=== PATIENT | female | born 1945 | race Caucasian/White ===

== ENCOUNTER 2021-04-14 11:46 | Outpatient (CLI) | payer MEDICARE ==
[~2021-04-14] VITALS: Ht 160 cm; Wt 63.5 kg
[2021-04-15] MEDS ORDERED: LISI20TA26 PO (09:17)
[2021-04-15] MEDS ORDERED: CLON0.5T25 PO (09:17)
[2021-04-15] MEDS ORDERED: CITA20TA12 PO (09:17)
[2021-04-15] MEDS ORDERED: VIT D PO (09:17)
[2021-04-15] MEDS ORDERED: ROSU5TAB13 PO (09:17)
[2021-04-15] MEDS ORDERED: VIT B12 OTC PO (09:17)
[2021-04-15] MEDS ORDERED: [UNRECOGNIZED DRUG - OTHER] PO (09:17)
== END 2021-04-15 09:36 | disposition home or self-care (01) ==
LOC: PREOP 11:46
PROVIDERS: ATTEND Internal Medicine
DX: Z01.818 Encounter for other preprocedural examination (principal)

== ENCOUNTER 2021-04-23 09:33 | Day surgery (SDC) | payer MEDICARE, OTHER ==
--- NOTE | 2021-04-15 07:26 | HISTORY AND PHYSICAL ---
DATE OF SERVICE: COLONOSCOPY HISTORY AND PHYSICAL DATE OF ADMISSION: ____ HISTORY OF PRESENT ILLNESS: The patient of 75-year-old white female being set up for screening colonoscopy. She had one another colonoscopy done over 10 years ago at [place] and she does not recall any problems or polyps. She thinks she may have had some diverticulum. Otherwise, she has been feeling well. She has noted no bright red blood per rectum, melena and has had no bowel habit change or abdominal pain. PAST MEDICAL HISTORY: Significant for hypertension and hyperlipidemia with no known history for vascular disease. PAST SURGICAL HISTORY: Noncontributory. FAMILY HISTORY: Her father of brain cancer at the age of 75. Mother totally gave up after that dying of malnutrition and depression. She is not aware of any family history for GI tract malignancy. PHYSICAL EXAMINATION: GENERAL: Reveals a white female, appears to be in no acute distress. HEENT: Unremarkable. Sclerae nonicteric. VITAL SIGNS: Blood pressure 130/66, weight 142 pounds, and stable. CHEST: Clear to auscultation. CARDIOVASCULAR: Reveals a regular rate and rhythm without murmur, S3 or S4. ABDOMEN: Soft, supple without mass, organomegaly or tenderness. Bowel sounds positive. No bruits noted. EXTREMITIES: Reveal no cyanosis, clubbing or edema. ASSESSMENT AND PLAN: 1. Hypertension, under good control. 2. Hyperlipidemia, has been under good control on statin therapy. 3. The patient is being set up for screening colonoscopy. Did discuss this would be her last if she had no evidence for neoplasia. Prep instructions with the Suprep kit were given and questions were answered. Job ID: [id number] DocumentID: [id number] Dictated Date: 04/07/2021 15:47:23 Music Supervisor Date: 04/07/2021 15:58:22 Dictated By: CAMERON LUCAS MD
[~2021-04-23] VITALS: Ht 160 cm; Wt 63.5 kg
[~2021-04-23 09:33] MED LIST: CITA20TA12 PO; CLON0.5T25 PO; LISI20TA26 PO; ROSU5TAB13 PO; VIT B12 OTC PO; VIT D PO; [UNRECOGNIZED DRUG - OTHER] PO
[2021-04-23] MEDS ORDERED: LACTATED RINGERS 1,000 ML IV ONE ×2 (09:43→10:30)
[2021-04-23 10:07] VITALS: BP 124/57
[2021-04-23] MEDS ORDERED: PROPOFOL INJECTION 50 ML IV ONE (10:20)
[2021-04-23 10:55] VITALS: BP 97/50
--- NOTE | 2021-04-23 10:56 | Anesthesia-General Post-Op ---
MAC Patient Condition Mental Status/LOC: Same as Preop Cardiovascular: Satisfactory Nausea/Vomiting: Absent Respiratory: Satisfactory Pain: Controlled Complications: Absent Post Op Complications Complications None Follow Up Care/Instructions Patient Instructions None needed. Anesthesiology Discharge Order Discharge Order Patient is doing well, no complaints, stable vital signs, no apparent adverse anesthesia problems. No complications reported per nursing. AVELINA VALLADARES CRNA Apr 23, 2021 10:56
[2021-04-23 11:00] VITALS: BP_SYST 98; BP_DIAS 51; BP_DIAS 54
[2021-04-23 11:27] VITALS: BP 122/56
[2021-04-23 11:31] VITALS: BP 122/56
--- NOTE | 2021-04-23 18:09 | OPERATIVE REPORT ---
DATE OF SERVICE: COLONOSCOPY SUMMARY INDICATION FOR THE PROCEDURE: Screening colonoscopy. I am her primary care provider. DESCRIPTION OF PROCEDURE: Prior to undergoing colonoscopy, a digital rectal evaluation was performed. Anal sphincter tone was normal and the perianal reflexes intact. Digital exam was compatible with an anterior rectocele. No other abnormalities were noted. The colonoscope was then inserted into the rectum and under direct visualization advanced to the cecum. The cecum was identified by identification of the cecal strap. Quality of prep was good. FINDINGS: There was no evidence for internal or external hemorrhoids. Present in the distal rectum was a 1.2 x 0.6 cm adenomatous appearing polyp. It was photographed and then excised via hot snare. The base was cauterized with minimal blood loss. The remainder of the rectum was unremarkable. Several small sigmoid diverticulum were present without evidence for diverticulitis. Present in the distal sigmoid colon was a diminutive 3 mm sessile polyp that was biopsied and ablated with no blood loss. The descending colon, splenic flexure, transverse colon, hepatic flexure, ascending colon and cecum were unremarkable. ASSESSMENT: A 1.2 x 0.6 cm adenomatous appearing polyp was removed via snare and the base was also cauterized with the hot forceps noted in the distal rectum. Other diminutive polyp was ablated from the distal sigmoid colon. We will need to await histopathology report before making recommendations for future surveillance colonoscopy. Mild diverticular disease confined to the sigmoid colon was present and digital rectal evaluation was compatible with an anterior rectocele. Job ID: [id number] DocumentID: [id number] Dictated Date: 04/23/2021 11:11:24 Drawing Checker Date: 04/23/2021 18:08:26 Dictated By: CAMERON LUCAS MD
== END 2021-04-23 11:32 | disposition home or self-care (01) ==
LOC: ENDO 09:33
PROVIDERS: ATTEND Internal Medicine
DX: Z12.11 Encounter for screening for malignant neoplasm of colon (principal); D12.8 Benign neoplasm of rectum; K63.5 Polyp of colon; K57.30 Diverticulosis of large intestine without perforation or abscess without bleeding; I10 Essential (primary) hypertension; E78.5 Hyperlipidemia, unspecified; Z79.899 Other long term (current) drug therapy

== ENCOUNTER → 2023-03-06 | Outpatient (CLI) | payer MEDICARE, OTHER ==
--- NOTE | 2023-03-06 13:06 | Diagnostic Imaging Report ---
INDICATION: Back pain for a few weeks. FINDINGS: AP and lateral views of the lumbar spine are obtained. There is straightening of normal lumbar lordosis. There is diffuse disc space narrowing from L2 through L5 with mild associated endplate spurring. There is also sclerosis about the L4-L5 facet joints, greater on the right. No fracture is seen. There is mild sclerosis about the right sacroiliac joint. Surgical material is seen in the central pelvis. IMPRESSION: Diffuse lumbar degenerative disc disease without evidence of acute fracture. There is associated degenerative facet arthropathy, most pronounced on the right at L4-L5 with possible mild right sacroiliitis. Dictated by: Dictated on workstation # [id number]
--- NOTE | 2023-03-06 13:20 | Diagnostic Imaging Report ---
INDICATION: Pelvic pain, fall. FINDINGS: Three-view sacrococcygeal radiographs were performed. No SI joint diastasis. No visible sacral or coccygeal fracture deformity at AP or bilateral oblique views. IMPRESSION: Unremarkable bilateral sacrococcygeal radiographs. No SI joint diastasis or visible ankylosis. Dictated by: Dictated on workstation # [id number]
--- NOTE | 2023-03-06 13:25 | Diagnostic Imaging Report ---
INDICATION: Pain. FINDINGS: Three-view left hand performed. There are severe degenerative changes, greatest at the first CMC where there are some regional soft tissue calcifications. No fracture or dislocation. There is interphalangeal arthritic joint space narrowing. No devon erosion. IMPRESSION: Chronic arthritic sequelae, but no fracture or acute injury radiographically apparent. Dictated by: Dictated on workstation # [id number]
== END ==
LOC: RAD 12:09
PROVIDERS: ATTEND Nurse Practitioner Family
DX: M51.36 Other intervertebral disc degeneration, lumbar region (principal); M47.816 Spondylosis without myelopathy or radiculopathy, lumbar region; M19.042 Primary osteoarthritis, left hand
CPT/HCPCS: 72100; 72202; 73130

== ENCOUNTER 2023-03-07 13:53 | Outpatient (RCR) | payer MEDICARE, OTHER | END 2023-03-12 | disposition home or self-care (01) | PROVIDERS: ATTEND Nurse Practitioner Family | DX: M54.16 Radiculopathy, lumbar region (principal); I10 Essential (primary) hypertension; Z96.651 Presence of right artificial knee joint ==

== ENCOUNTER 2023-04-11 09:12 | Outpatient (RCR) | payer MEDICARE, OTHER | END 2023-04-12 | disposition home or self-care (01) | PROVIDERS: ATTEND Nurse Practitioner Family | DX: M54.16 Radiculopathy, lumbar region (principal); I10 Essential (primary) hypertension; Z96.651 Presence of right artificial knee joint ==

== ENCOUNTER 2023-05-11 10:53 | Outpatient (RCR) | payer MEDICARE, OTHER | END 2023-05-11 13:46 | disposition home or self-care (01) | PROVIDERS: ATTEND Nurse Practitioner Family | DX: M54.16 Radiculopathy, lumbar region (principal); I10 Essential (primary) hypertension; Z96.651 Presence of right artificial knee joint ==

== ENCOUNTER → 2023-09-08 | Outpatient (CLI) | payer MEDICARE, OTHER ==
[2023-09-08 12:55] LABS: HEMATOCRIT 40 % (35-52); HEMOGLOBIN 13.3 g/dL (11.5-16.0); MEAN CORPUSCULAR HEMOGLOBIN 32 pg (25-34); MEAN CORPUSCULAR HGB CONC 33 g/dL (32-36); MEAN CORPUSCULAR VOLUME 95 fL (80-99); MEAN PLATELET VOLUME 10.3 fL (9.0-12.2); PLATELET COUNT 243 10^3/uL (130-400); WHITE BLOOD COUNT 6.8 10^3/uL (4.3-11.0)
[2023-09-08 13:19] LABS: ALBUMIN 4.3 GM/DL (3.2-4.5); BILIRUBIN,TOTAL 0.9 MG/DL (0.1-1.0); CALCIUM 9.5 MG/DL (8.5-10.1); CREATININE SERUM 0.83 MG/DL (0.60-1.30); POTASSIUM 4.3 MMOL/L (3.6-5.0); TOTAL PROTEIN 7.4 GM/DL (6.4-8.2)
--- NOTE | 2023-09-08 14:20 | Diagnostic Imaging Report ---
INDICATION: Right leg pain. Right leg venous Doppler study was performed in the routine fashion with color flow Doppler and waveform analysis. FINDINGS: The right common femoral vein, superficial femoral vein, popliteal vein and visualized portion of the tibial veins show normal compressibility and venous flow patterns. There is normal augmentation. There is a soft tissue hematoma in the medial portion of the right lower leg, measuring about 4.5 x 0.8 cm. IMPRESSION: No evidence of deep vein thrombosis of the major veins of the right leg. Soft tissue hematoma in the medial portion of the right lower leg. Dictated by: Dictated on workstation # [id number]
== END ==
LOC: RAD 12:43
PROVIDERS: ATTEND Nurse Practitioner Family
DX: R60.0 Localized edema (principal); S80.11XA Contusion of right lower leg, initial encounter; S80.11XD Contusion of right lower leg, subsequent encounter; F32.A Depression, unspecified; I10 Essential (primary) hypertension; E78.49 Other hyperlipidemia; Y92.098 Other place in other non-institutional residence as the place of occurrence of the external cause; G25.81 Restless legs syndrome; W22.09XA Striking against other stationary object, initial encounter; W22.09XD Striking against other stationary object, subsequent encounter
CPT/HCPCS: 36415; 80053; 85027; 85379

== ENCOUNTER → 2023-09-11 | Outpatient (CLI) | payer MEDICARE, OTHER | LOC: WOUNDCARE 13:20 | PROVIDERS: ATTEND Family Medicine | DX: T81.31XA Disruption of external operation (surgical) wound, not elsewhere classified, initial encounter (principal); R60.0 Localized edema; R29.6 Repeated falls | CPT/HCPCS: 11042; A6212; G0463 ==

== ENCOUNTER → 2023-09-19 | Outpatient (CLI) | payer MEDICARE, OTHER | LOC: WOUNDCARE 12:28 | PROVIDERS: ATTEND Family Medicine | DX: T81.31XA Disruption of external operation (surgical) wound, not elsewhere classified, initial encounter (principal); R60.0 Localized edema; R29.6 Repeated falls; I96 Gangrene, not elsewhere classified | CPT/HCPCS: 11042; G0463 ==

== ENCOUNTER → 2023-09-26 | Outpatient (CLI) | payer MEDICARE, OTHER | LOC: WOUNDCARE 12:25 | PROVIDERS: ATTEND Family Medicine | DX: T81.31XA Disruption of external operation (surgical) wound, not elsewhere classified, initial encounter (principal); I96 Gangrene, not elsewhere classified; R29.6 Repeated falls; R60.0 Localized edema | CPT/HCPCS: 11042; A6212; G0463 ==

== ENCOUNTER → 2023-10-03 | Outpatient (CLI) | payer MEDICARE, OTHER | LOC: WOUNDCARE 12:27 | PROVIDERS: ATTEND Family Medicine | DX: T81.31XA Disruption of external operation (surgical) wound, not elsewhere classified, initial encounter (principal); R60.0 Localized edema; R29.6 Repeated falls | CPT/HCPCS: 11042; A6212; G0463 ==

== ENCOUNTER → 2023-10-10 | Outpatient (CLI) | payer MEDICARE, OTHER | LOC: WOUNDCARE 12:20 | PROVIDERS: ATTEND Family Medicine | DX: T81.31XA Disruption of external operation (surgical) wound, not elsewhere classified, initial encounter (principal); R60.0 Localized edema; R29.6 Repeated falls | CPT/HCPCS: 99212 ==